=== PATIENT | female | born 1975 | race Caucasian/White ===

== ENCOUNTER 2022-01-29 11:56 | Emergency (ER) | payer BC ==
[2022-01-29 13:42] LABS: HEMOGLOBIN 12.1 gm/dl (12.3-15.3); RED BLOOD COUNT 4.04 M/UL (4.00-5.10); WHITE BLOOD COUNT 9.7 K/UL (4.5-11.0)
[2022-01-29 14:17] LABS: BUN/CREATININE RATIO 12 (0-10)
== END 2022-01-29 15:47 | disposition home or self-care (01) ==
LOC: ER1 11:56
PROVIDERS: Emergency Medicine
DX: R07.89 Other chest pain (principal); E87.6 Hypokalemia; Z88.2 Allergy status to sulfonamides
CPT/HCPCS: 71045; 80053; 82550; 82553; 83735; 84439; 84443; 84484; 84703; 85025; 85379; 93005; 99285

== ENCOUNTER 2022-06-20 11:53 | Emergency (ER) | payer OTHER ==
[2022-06-20 12:25] LABS: RED BLOOD COUNT 3.95 M/UL (4.00-5.10); WHITE BLOOD COUNT 9.2 K/UL (4.5-11.0)
[2022-06-20 12:54] LABS: BUN/CREATININE RATIO 16 (0-10)
== END 2022-06-20 17:15 | disposition home or self-care (01) ==
LOC: ER1 11:53
PROVIDERS: Physician Assistant Medical
DX: R07.9 Chest pain, unspecified (principal); K21.9 Gastro-esophageal reflux disease without esophagitis; I10 Essential (primary) hypertension; Z79.82 Long term (current) use of aspirin; Z88.2 Allergy status to sulfonamides; Z51.81 Encounter for therapeutic drug level monitoring
CPT/HCPCS: 71045; 80053; 82550; 82553; 84484; 85025; 85610; 93005; 99285